=== PATIENT | female | born 1975 | race Caucasian/White ===

== ENCOUNTER 2017-01-17 00:14 | Emergency (ER) | payer OTHER ==
[~2017-01-17] VITALS: Ht 172.7 cm; Wt 101.6 kg
[~2017-01-17 00:14] MED LIST: ASPIRIN81 M4 PO; AUGMENTIN 875-1 EACH PO; BUPROPION HYDR300 M1 PO; CINNAMON500 M1 PO; CLONAZEPAM1 M2 PO; CLONAZEPAM1 MG PO; COUMADIN 7.5 M7.5 MG PO; COUMADIN10 M1 PO; CRESTOR20 MG PO; FISH OIL 1,0001 EACH PO; FLEXERIL10 MG PO; FUROSEMIDE20 M1 PO; HUMALOG100 U/ML; HUMALOG100 UNIT/2 SC; HYDROXYCHLOROQ200 M2 PO; LEVEMIR 10100 UNITS/ SC; LEVOTHYROXINE150 MCG PO; LISINOPRIL10 MG PO; LOSARTAN POTAS100 M1 PO; MELATONIN5 M7 PO; METHOTREXATE2.5 M2 PO; MODAFINIL100 MG PO; NEURONTIN400 M1 PO; NEXIUM20 M1 PO; NOVOLOG100 U/ML SC; PREDNISONE 10MG10 M1 PO; PRISTIQ ER100 MG PO; SUBOXONE 2 MG-01 FIL PO; SUBOXONE 8 MG-1 EACH SL; VITAMIN D31000 UNI2 PO; WARFARIN SODIUM10 MG
--- NOTE | 2017-01-17 00:51 | ED UPPER/LOWER EXTREMITY COMPL ---
History of Present Illness General Chief Complaint: Lower Extremity Problems Stated Complaint: RIGHT FOOT PAIN, HX OF DVT Source: patient Exam Limitations: no limitations Vital Signs & Intake/Output Vital Signs & Intake/Output Vital Signs Date Time Temp Pulse Resp B/P Pulse O2 O2 Flow FiO2 Ox Delivery Rate 01/17 0911 97.0 75 20 140/80 98 Room Air 01/17 0646 97.2 73 18 129/73 98 Room Air 01/17 0031 95 Room Air 01/17 0025 97.6 76 18 175/95 94 Room Air Allergies Coded Allergies: Sulfa (Sulfonamide Antibiotics) (RASH 06/06/16) adhesive tape (RASH - PAPER TAPE OKAY PER PT 06/06/16) Triage Note: PT FROM HOME C/O RIGHT FOOT/ANKLE SWOLLEN AND RED. PT STATES SHE HAS A HX OF DVT'S AND LUPUS. PT NOTICED SYMPTOMS TODAY AROUND 1800 AT DINNER HER FOOT BEGAN TO HURT. PT STATES THAT DURING THE DAY SHE WAS AMBULATING AND THEN AFTER DINNER THE SWELLING AND PAIN BECAME WORSE TO THE POINT WHERE SHE COULDNT WALK. AWAITING PROVIDER EVAL. Triage Nurses Notes Reviewed? yes : No Patient currently breastfeeds: No HPI: Patient presents for evaluation of right foot pain and swelling that began abruptly at about 8:00 this evening while at home. Patient states that she returned from vacation yesterday from [place]. She denies any associated fever, cold symptoms, chest pain or dyspnea. She has a history of frequent DVTs and CVAs secondary to antiphospholipid antibody syndrome and lupus. Patient's pain is described as severe constant and worse with attempts to ambulate. It is located over the dorsum of the right foot and wraps around to the metatarsal heads on the plantar aspect of the foot. (NATIVIDAD TRIVEDI,DOMINIC Post) Reconcile Medications Aspirin (Aspirin*) 81 MG TAB.CHEW 1 TAB PO DAILY HEART/BLOOD (Reported) Buprenorphine HCl/Naloxone HCl (Suboxone 8 MG-2 MG Sl Film) 1 EACH FILM 1 STR SL BID PAIN/MENTAL HEALTH (Reported) Bupropion HCl (Bupropion XL) 150 MG TAB.ER.24H 1 TAB PO QAM MENTAL HEALTH ( Reported) Cholecalciferol (Vitamin D3) 1,000 UNIT TABLET 1 TAB PO DAILY SUPPLEMENT ( Reported) Cinnamon Bark (Cinnamon) 500 MG CAPSULE 2 CAP PO DAILY SUPPLEMENT (Reported) Clonazepam 1 MG TABLET 2 TAB PO QPM SLEEP (Reported) Clonazepam 1 MG TABLET 1 TAB PO BID PRN ANXIETY (Reported) Desvenlafaxine Succinate (Pristiq ER) 100 MG TAB.ER.24H 1 TAB PO DAILY MENTAL HEALTH (Reported) Esomeprazole Magnesium (Nexium) 20 MG CAPSULE.DR 1 CAP PO DAILY GI (Reported) Furosemide 20 MG TABLET 1 TAB PO EOD BP (Reported) Gabapentin (Neurontin) 400 MG CAPSULE 1 CAP PO TID NEUROPATHY (Reported) Hydroxychloroquine Sulfate 200 MG TABLET 1 TAB PO BID LUPUS (Reported) Insulin Lispro (Humalog) 100 UNIT/1 ML VIAL INSULIN PUMP (Reported) Levothyroxine Sodium 150 MCG TABLET 1 TAB PO DAILY AC THYROID (Reported) Losartan Potassium 100 MG TABLET 1 TAB PO DAILY BP (Reported) Melatonin 5 MG TABLET 2 TAB PO QPM SLEEP (Reported) Methotrexate 2.5 MG TABLET 8 TAB PO QWED LUPUS (Reported) Modafinil 200 MG TABLET 1 TAB PO QAM UNKNOWN (Reported) [place]-3 Fatty Acids/Fish Oil (Fish Oil 1,000 MG Capsule) 1 EACH CAPSULE 1 CAP PO DAILY SUPPLEMENT (Reported) Rosuvastatin Calcium (Crestor) 20 MG TABLET 1 PO DAILY CHOLESTEROL (Reported) Warfarin Sodium 7.5 MG TABLET 1 TAB PO 1700 BLOOD THINNER (Reported) (WENDY TRIVEDI,SHERYL) Past History Travel History Traveled to [place] past 21 day No Medical History Any Pertinent Medical History? 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 B[employer] Other Medical Hx: Past Medical Hx: MIGRAINES, LUPUS, HEMOLYTIC ANEMIA, DM,PELVIX RIB FX CVA HYPOTHYROD, PULM EMBOLISM,SPLENECTOMY,OVARIES REMOVED History of MRSA: No History of VRE: No History of CDIFF: No Surgical History Surgical History: splenectomy TONSILS REMOVED BREAST REDUCTION IVC filter Psychosocial History Who do you live with Family Services at Home Home Health Aide What is your primary language Sri Lankan Tobacco Use: Current Daily Use Daily Tobacco Use Amount/Type: => 5 Cigarettes daily ETOH Use: occasional use Illicit Drug Use: denies illicit drug use Family History Hx Contributory? No (NATIVIDAD TRIVEDI,DOMINIC Post) Review of Systems Review of Systems Constitutional: Reports: no symptoms. EENTM: Reports: no symptoms. Respiratory: Reports: no symptoms. Cardiovascular: Reports: no symptoms. Gastrointestinal/Abdominal: Reports: no symptoms. Genitourinary: Reports: no symptoms. Musculoskeletal: Reports: see HPI. Skin: Reports: see HPI. Neurological/Psychological: Reports: no symptoms. Hematologic/Endocrine: Reports: no symptoms. Immunological: Reports: no symptoms. All Other Systems: Reviewed and Negative (NATIVIDAD TRIVEDI,DOMINIC Post) Physical Exam Physical Exam General Appearance: SEE BELOW Comments: Gen.: Well-nourished, well-developed, no acute respiratory distress. Head: Normocephalic, atraumatic. Eyes: Normal inspection bilaterally Ears: Normal inspection bilaterally Nose: Normal inspection Throat/mouth : Moist mucosa Neck: Supple, full range of motion, no goiter Heart: Regular rate and rhythm Lungs: Quiet respirations Chest: Nontender Back: Normal range of motion Extremities: Normal range of motion grossly, equal dorsalis pedis pulses, no cyanosis, erythema and warmth and soft tissue swelling of the dorsal aspect of both feet with a geometric distribution consistent with "flip-flops" Neurologic: Cranial nerves grossly intact, speech is clear Skin: warm and dry Psychiatric: Calm, cooperative, no apparent delusions or hallucinations (NATIVIDAD TRIVEDI,DOMINIC Post) Progress Differential Diagnosis: CELLULITIS, SUNBURN, dvt Plan of Care: Orders Procedure Date/time Status PROTHROMBIN TIME 01/17 0051 Complete Laboratory Tests 01/17/17 0105: PT 38.3 H, INR 3.70 H Comments: 01/17/2017 7:11:36 AM uneventful emergency department stay overnight. Patient signed out to Dr. 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 (NATIVIDAD TRIVEDI,DOMINIC Post) Diagnostic Imaging: Viewed by Me: Ultrasound. Discussed w/RAD: Ultrasound. Radiology Impression: no dvt Comments: Patient and family updated with results. Plan of care discussed and they request motrin prescription despite being on coumadin. (SHERYL NGUYEN MD) Departure Departure Disposition: HOME OR SELF CARE Condition: Stable Referrals: UNKNOWN (PCP/Family) Departure Forms: Customer Survey General Discharge Information (DOMINIC HENSON MD) Departure Time of Disposition: 902 Clinical Impression Primary Impression: Right foot pain Secondary Impressions: Peripheral neuropathy Qualifiers: Peripheral neuropathy type: mononeuropathy, unspecified Qualified Code: G58.9 - Mononeuropathy, unspecified Additional Instructions: Cool compresses and elevation of the right leg. 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 Increase your gabapentin 2 tabs in morning and 2 tabs at night. Return if any concerns or sudden worsening. Prescriptions: Current Visit Scripts Ibuprofen 1 TAB PO Q6PRN PRN pain #50 TAB (WENDY TRIVEDI,SHERYL)
[2017-01-17 01:19] LABS: PT 38.3 SEC (9.4-12.5)
[2017-01-17] MEDS ORDERED: MODAFINIL200 M1 PO (08:33)
[2017-01-17] MEDS ORDERED: WARFARIN SODIU7.5 M1 PO (08:34)
[2017-01-17] MEDS ORDERED: BUPROPION XL150 MG PO (08:36)
--- NOTE | 2017-01-17 08:43 | ULTRASOUND REPORT ---
EXAMINATION: US TRIPLEX LOWER EXTREMITY, RIGHT CLINICAL INFORMATION: Right foot pain and swelling. History of deep vein thrombosis. COMPARISON: 11/20/2015 TECHNIQUE: Color-flow triplex imaging with spectral analysis and compression Doppler were performed on the right lower extremity. FINDINGS: The right common femoral vein is compressible and exhibits a normal phasic waveform; this suggests that the iliac veins are widely patent above. Within the proximal thigh, the visualized profunda femoris vein is patent and the examined greater saphenous vein and saphenofemoral junction are normal. Superficial femoral vein is patent in the proximal, mid and distal thigh. Popliteal vein appears normal to the level of the trifurcation, and the visualized calf veins are unremarkable. No evidence of Love's cyst. IMPRESSION: No evidence of deep vein thrombosis in the right lower extremity.
[2017-01-17 09:23] VITALS: BP 172/96
[2017-01-17] MEDS ORDERED: IBUPROFEN800 M1 PO (09:23)
== END 2017-01-17 09:37 ==
LOC: ERH 00:14
PROVIDERS: Emergency Medicine
DX: G62.9 Polyneuropathy, unspecified (principal); Z79.01 Long term (current) use of anticoagulants